=== PATIENT | male | born 1945 | race Caucasian/White ===

== ENCOUNTER 2016-12-27 10:30 | Outpatient (CLI) | payer OTHER ==
[~2016-12-27] VITALS: Ht 174 cm; Wt 76.2 kg
[2016-12-27] MEDS ORDERED: MELO15TA39 PO (11:06)
[2016-12-27] MEDS ORDERED: METH750T3 PO (11:06)
[2016-12-27] MEDS ORDERED: POLY17PO6 PO (11:06)
[2016-12-27] MEDS ORDERED: CAPS42.58 TP (11:06)
[2016-12-27] MEDS ORDERED: GABA-490 PO (11:06)
[2016-12-27] MEDS ORDERED: ASPI-586 PO (11:06)
[2016-12-27] MEDS ORDERED: TRAM50TA2 PO (11:06)
[2016-12-28] MEDS ORDERED: OXYB5TAB9 PO (08:20)
[2016-12-28] MEDS ORDERED: TRAZ-28 PO (08:20)
== END 2016-12-27 11:16 ==
LOC: PREOP 10:30
PROVIDERS: ATTEND Surgery
DX: Z01.818 Encounter for other preprocedural examination (principal); Z12.11 Encounter for screening for malignant neoplasm of colon; K59.00 Constipation, unspecified

== ENCOUNTER 2016-12-28 07:44 | Day surgery (SDC) | payer OTHER ==
[~2016-12-28] VITALS: Ht 174 cm; Wt 76.2 kg
[~2016-12-28 07:44] MED LIST: ASPI-586 PO; CAPS42.58 TP; GABA-490 PO; MELO15TA39 PO; METH750T3 PO; POLY17PO6 PO; TRAM50TA2 PO
[2016-12-28] MEDS ORDERED: NS IV 1000 ML 1,000 ML IV STA (07:51)
[2016-12-28] MEDS ORDERED: NALOXONE 0.4 MG/ML 1 ML (NARCAN) VIAL IVP PRN (08:00)
[2016-12-28] MEDS ORDERED: FLUMAZENIL (ROMAZICON) 0.1 MG/ML 5 ML VIAL INJ PRN (08:00)
[2016-12-28 08:12] VITALS: BP 121/72
[2016-12-28] MEDS ORDERED: fentaNYL INJECTION 100 MCG/2 ML AMP ONE (08:19)
[2016-12-28] MEDS ORDERED: proPOfol 200 MG/20 ML (DIPRIVAN) VIAL IV ONE (08:19)
[2016-12-28] MEDS ORDERED: TRAZ-28 PO (08:20)
[2016-12-28] MEDS ORDERED: OXYB5TAB9 PO (08:20)
--- NOTE | 2016-12-28 08:30 | Progress Note-Pre Operative ---
Pre-Operative Progress Note H&P Reviewed The H&P was reviewed, patient examined and no changes noted. Date H&P Reviewed: December 28, 2016 Time H&P Reviewed: 08:29 Pre-Operative Diagnosis: screening colonoscopy, constipation GALINA SANCHEZ DO December 28, 2016 8:30 am
--- NOTE | 2016-12-28 09:42 | Progress Note-Post Operative ---
Post-Operative Progess Note Surgeon (s)/Sander Operator (s) Surgeon GALINA SANCHEZ DO Sander Operator: na Pre-Operative Diagnosis screening colonoscopy, constipation Post-Operative Diagnosis normal colon Procedure & Operative Findings Date of Procedure 12/28/16 Procedure Performed/Findings colonoscopy Anesthesia Type per promotional demonstrator Estimated Blood Loss Estimated blood loss (mL): none Specimens/Packing Specimens Removed GALINA Pulido DO December 28, 2016 9:42 am
--- NOTE | 2016-12-28 09:45 | Discharge Inst-Simple/Standard ---
Discharge Inst-Standard Patient Instructions/Follow Up Plan of Care/Instructions/FU: Patient will need repeat colonscopy in 10 years Follow up with Dr. Haynes as needed. Activity as Tolerated: Yes Discharge Diet: No Restrictions PRADIP JAMES APRN December 28, 2016 09:45
[2016-12-28 10:00] VITALS: BP 131/75
--- NOTE | 2016-12-28 10:06 | OPERATIVE REPORT ---
DATE OF SERVICE: 12/28/2016 PREOPERATIVE DIAGNOSIS: Screening colonoscopy, constipation. POSTOPERATIVE DIAGNOSIS: Normal colon. PROCEDURE: Colonoscopy. ANESTHESIA: Per ANTIQUE DEALER. ESTIMATED BLOOD LOSS: None. COMPLICATIONS: None. INDICATIONS: The patient is a 71-year-old male with a need of screening colonoscopy. He has had some constipation at times. He understands risks and benefits of procedure and wished to proceed with procedure. Consent was signed in chart. PROCEDURE: The patient was taken to the endoscopy suite, placed in left lateral recumbent position. Timeout was performed. Digital rectal exam was performed and there were no palpable polyps, masses or ulcerations. Scope was inserted into the rectum and advanced all the way to the cecum. There was a lot of liquid stool throughout the entire colon, which 2 L of liquid brown stool was removed. The cecum was identified by the appendiceal orifice and the ileocecal valve. There were no polyps, masses or ulcerations within the cecum. The scope was then slowly retracted and continued to irrigate and suction for adequate visualization. Scope was then continuously retracted back throughout colon. There were no polyps, masses or ulcerations in the cecum, ascending, transverse, descending and sigmoid colon. Once in the rectum, scope was retroflexed noting no other pathology. Scope was returned to its normal position slowly withdrawn until completely removed, noting no other pathology. The patient tolerated procedure well without any complications and was taken to the recovery room in stable condition. RECOMMENDATIONS: The patient will need repeat colonoscopy in ten years. If he has any problems prior to that, he should be reevaluated at that time. If patient has any family history of colon cancer, he should be reevaluated in 5 years. Job ID: [id number] DocumentID: [id number] Dictated Date: 12/28/2016 09:45:26 Diesel Powerplant Mechanic Helper Date: 12/28/2016 10:05:30 Dictated By: GALINA SANCHEZ DO
[2016-12-28 10:30] VITALS: BP 126/84
[2016-12-28 10:50] VITALS: BP 126/84
== END 2016-12-28 10:50 | disposition home or self-care (01) ==
LOC: ENDO 07:44
PROVIDERS: ATTEND Surgery
DX: Z12.11 Encounter for screening for malignant neoplasm of colon (principal); K59.00 Constipation, unspecified

== ENCOUNTER 2018-07-26 08:56 | Outpatient (RCR) | payer OTHER ==
[~2018-07-26 08:56] MED LIST changes: +OXYB5TAB9 PO; +TRAZ-189 PO
== END 2018-08-04 13:41 | disposition home or self-care (01) ==
PROVIDERS: ATTEND Orthopaedic Surgery
DX: M19.012 Primary osteoarthritis, left shoulder (principal)

== ENCOUNTER 2020-06-27 13:30 | Emergency (ER) | payer OTHER ==
[~2020-06-27] VITALS: Ht 177 cm; Wt 160.0 kg
[~2020-06-27 13:30] MED LIST changes: +CAPS42.514 TP; -CAPS42.58 TP; +OXYB5TAB13 PO; -OXYB5TAB9 PO; -TRAM50TA2 PO; -TRAZ-189 PO; +TRM50T PO; +TRZ50T PO
[2020-06-27] MEDS ORDERED: LACTATED RINGERS 1,000 ML IV ONE (14:19)
[2020-06-27 14:30] LABS: BASOPHILS % (AUTO) 0 % (0-10); EOSINOPHILS % (AUTO) 1 % (0-10); HEMATOCRIT 36 % (40-54); HEMOGLOBIN 11.8 g/dL (13.3-17.7); LYMPHOCYTES # (AUTO) 1.2 10^3/uL (1.0-4.0); LYMPHOCYTES % (AUTO) 27 % (12-44); MEAN CORPUSCULAR HEMOGLOBIN 32 pg (25-34); MEAN CORPUSCULAR HGB CONC 32 g/dL (32-36); MEAN CORPUSCULAR VOLUME 99 fL (80-99); MEAN PLATELET VOLUME 9.8 fL (9.0-12.2); MONOCYTES # (AUTO) 0.8 10^3/uL (0.0-1.0); MONOCYTES % (AUTO) 18 % (0-12); NEUTROPHILS # (AUTO) 2.3 10^3/uL (1.8-7.8); NEUTROPHILS % (AUTO) 52 % (42-75); PLATELET COUNT 246 10^3/uL (130-400); WHITE BLOOD COUNT 4.5 10^3/uL (4.3-11.0)
[2020-06-27 14:47] LABS: ALBUMIN 3.1 GM/DL (3.2-4.5)
[2020-06-27 14:48] LABS: CHLORIDE 100 MMOL/L (98-107); POTASSIUM 4.4 MMOL/L (3.6-5.0); SODIUM 137 MMOL/L (135-145)
[2020-06-27 14:49] LABS: CALCIUM 8.4 MG/DL (8.5-10.1)
[2020-06-27 14:50] LABS: GLUCOSE 120 MG/DL (70-105); TOTAL PROTEIN 5.9 GM/DL (6.4-8.2)
[2020-06-27 14:51] LABS: CARBON DIOXIDE 26 MMOL/L (21-32)
[2020-06-27 14:52] LABS: BILIRUBIN,TOTAL 0.3 MG/DL (0.1-1.0)
[2020-06-27 14:53] LABS: ALKALINE PHOSPHATASE 56 U/L (40-136)
[2020-06-27 14:54] LABS: CREATININE SERUM 0.96 MG/DL (0.60-1.30); GFR ESTIMATED > 60
[2020-06-27 14:55] LABS: BUN/CREATININE RATIO 17
[2020-06-27 14:56] LABS: ALANINE AMINOTRANSFERASE 34 U/L (0-55); MAGNESIUM 2.1 MG/DL (1.6-2.4)
[2020-06-27 15:55] LABS: CLARITY,URINE CLEAR; COLOR,URINE YELLOW; GLUCOSE, URINE (UA) NEGATIVE (NEGATIVE); KETONES,URINE NEGATIVE (NEGATIVE); LEUKOCYTE ESTERASE ,URINE NEGATIVE (NEGATIVE); NITRITE,URINE NEGATIVE (NEGATIVE); PROTEIN,URINE NEGATIVE (NEGATIVE)
[2020-06-27] MEDS ORDERED: METR500T PO (16:07)
[2020-06-27] MEDS ORDERED: CIPR500T4 PO (16:07)
--- NOTE | 2020-06-27 16:07 | ED GI ---
General Chief Complaint: Abdominal/GI Problems Stated Complaint: DIARRHEA,STOMACH CRAMPING, WEAKNESS, Nursing Triage Note: PT REPORTS TO ED FOR DIARRHEA X'S 2 WEEKS. PER PT WAS TESTED AT [facility] 06/24/20 AND WAS NEGATIVE FOR COVID. Sepsis Screen: No Definite Risk Source of Information: Patient Exam Limitations: No Limitations History of Present Illness Date Seen by Provider: Jun 27, 2020 Time Seen by Provider: 14:19 Initial Comments Ethan is a 74-year-old gentleman who presents to the emergency room with abdominal discomfort, cramping, and bloody watery stool for about 2 weeks. He denies any fever, vomiting, or respiratory symptoms. He denies any recent antibiotic use. He had a COVID-19 test last Tuesday which was negative. He had a colonoscopy by Dr. Haynes in 2016 that was unremarkable. He typically struggles with constipation and requires stool softeners or laxatives. Allergies and Home Medications Allergies Coded Allergies: No Known Drug Allergies (Unverified , 12/27/16) Home Medications Aspirin 81 Mg Tablet.dr, 81 MG PO DAILY, (Reported) Ciprofloxacin HCl 500 Mg Tablet, 500 MG PO BID Prescribed by: SANDRA BAEZ on 06/27/20 1607 Gabapentin 400 Mg Capsule, 400 MG PO TID, (Reported) Meloxicam 15 Mg Tablet, 15 MG PO DAILY, (Reported) Methocarbamol 750 Mg Tablet, 750 MG PO TID, (Reported) Metronidazole 500 Mg Tablet, 500 MG PO TID Prescribed by: SANDRA BAEZ on 06/27/20 1607 Oxybutynin Chloride 5 Mg Tablet, 5 MG PO DAILY, (Reported) Polyethylene Glycol 3350 17 Gm Powd.pack, 17 GM PO DAILY, (Reported) Tramadol HCl 50 Mg Tablet, 50 MG PO Q4H PRN for PAIN-MILD, (Reported) Trazodone HCl 50 Mg Tablet, 50 MG PO HS, (Reported) Patient Home Medication List Home Medication List Reviewed: Yes Review of Systems Review of Systems Constitutional: no symptoms reported EENTM: No Symptoms Reported Respiratory: No Symptoms Reported Cardiovascular: No Symptoms Reported Gastrointestinal: See HPI Genitourinary: No Symptoms Reported Musculoskeletal: no symptoms reported Skin: no symptoms reported Psychiatric/Neurological: No Symptoms Reported Endocrine: No Symptoms Reported Hematologic/Lymphatic: No Symptoms Reported Past Fkfjkdp-Bjtwod-Wttssj Hx Past Med/Social Hx: Reviewed Nursing Past Med/Soc Hx Patient Social History Alcohol Use: Occasionally Uses Alcohol Beverage of Choice: Wine Recreational Drug Use: No Smoking Status: Former Smoker Former Smoker, Quit: December 27, 1976 Recent Foreign Travel: No Contact w/Someone Who Travel: No Recent Infectious Disease Expo: No Recent Hopitalizations: No Immunizations Up To Date Date of Pneumonia Vaccine: Oct 11, 2016 Date of Influenza Vaccine: May 17, 2016 Seasonal Allergies Seasonal Allergies: No Past Medical History Surgeries: Yes Abdominal (Colonoscopy 2016), Orthopedic (Spine, toe), Tonsillectomy Cardiac: No Neurological: Yes Neuropathy Reproductive Disorders: No Sexually Transmitted Disease: No HIV/AIDS: No Gastrointestinal: Yes Chronic Constipation Arthritis Loss of Vision: Bilateral Hearing Impairment: Denies Cancer: No Psychosocial: Yes Anxiety, Depression Adverse Reaction/Blood Tranf: No (N/A) Physical Exam Vital Signs Vital Signs - First Documented 06/27/20 13:52 Temp 36.5 Pulse 73 Resp 18 B/P (MAP) 110/64 (79) Pulse Ox 97 O2 Delivery Room Air Capillary Refill : Less Than 3 Seconds Height/Weight/BMI Height: 5'8.50" Weight: 168lbs. 0.0oz. 76.893083iv; 51.00 BMI Method: General Appearance: WD/WN, no apparent distress HEENT: PERRL/EOMI, normal ENT inspection Neck: normal inspection Respiratory: lungs clear, normal breath sounds, no respiratory distress, no accessory muscle use Cardiovascular: regular rate, rhythm, no edema, no murmur Gastrointestinal: normal bowel sounds, soft; No distended; tenderness (Left lower abdomen) Extremities: normal inspection, no pedal edema Neurologic/Psychiatric: power operator II-XII nml as tested, no motor/sensory deficits, alert, normal mood/affect, oriented x 3 Skin: normal color, warm/dry Progress/Results/Core Measures Results/Orders Lab Results Laboratory Tests Test 06/27/20 14:17 06/27/20 15:44 Range/Units White Blood Count 4.5 4.3-11.0 10^3/uL Red Blood Count 3.69 L 4.30-5.52 10^6/uL Hemoglobin 11.8 L 13.3-17.7 g/dL Hematocrit 36 L 40-54 % Mean Corpuscular Volume 99 80-99 fL Mean Corpuscular Hemoglobin 32 25-34 pg Mean Corpuscular Hemoglobin Concent 32 32-36 g/dL Red Cell Distribution Width 14.2 10.0-14.5 % Platelet Count 246 130-400 10^3/uL Mean Platelet Volume 9.8 9.0-12.2 fL Immature Granulocyte % (Auto) 2 % Neutrophils (%) (Auto) 52 42-75 % Lymphocytes (%) (Auto) 27 12-44 % Monocytes (%) (Auto) 18 H 0-12 % Eosinophils (%) (Auto) 1 0-10 % Basophils (%) (Auto) 0 0-10 % Neutrophils # (Auto) 2.3 1.8-7.8 10^3/uL Lymphocytes # (Auto) 1.2 1.0-4.0 10^3/uL Monocytes # (Auto) 0.8 0.0-1.0 10^3/uL Eosinophils # (Auto) 0.0 0.0-0.3 10^3/uL Basophils # (Auto) 0.0 0.0-0.1 10^3/uL Immature Granulocyte # (Auto) 0.1 0.0-0.1 10^3/uL Sodium Level 137 135-145 MMOL/L Potassium Level 4.4 3.6-5.0 MMOL/L Chloride Level 100 98-107 MMOL/L Carbon Dioxide Level 26 21-32 MMOL/L Anion Gap 11 5-14 MMOL/L Blood Urea Nitrogen 16 7-18 MG/DL Creatinine 0.96 0.60-1.30 MG/DL Estimat Glomerular Filtration Rate > 60 BUN/Creatinine Ratio 17 Glucose Level 120 H 70-105 MG/DL Calcium Level 8.4 L 8.5-10.1 MG/DL Corrected Calcium 9.1 8.5-10.1 MG/DL Magnesium Level 2.1 1.6-2.4 MG/DL Total Bilirubin 0.3 0.1-1.0 MG/DL Aspartate Amino Transf (AST/SGOT) 39 H 5-34 U/L Alanine Aminotransferase (ALT/SGPT) 34 0-55 U/L Alkaline Phosphatase 56 40-136 U/L C-Reactive Protein High Sensitivity 4.83 H 0.00-0.50 MG/DL Total Protein 5.9 L 6.4-8.2 GM/DL Albumin 3.1 L 3.2-4.5 GM/DL Micro Results Microbiology 06/27/20 Fecal Leukocyte Stain - Final, Resulted 06/27/20 C. difficile GDH Antigen & Toxins - Final, Resulted 06/27/20 Stool Culture, Resulted Pending My Orders Orders - SANDRA JONES MD Cbc With Automated Diff (06/27/20 14:19) Comprehensive Metabolic Panel (06/27/20 14:19) Hs C Reactive Protein (06/27/20 14:19) Magnesium (06/27/20 14:19) Ua Culture If Indicated (06/27/20 14:19) Stool Culture (06/27/20 14:19) Fecal Wbc (06/27/20 14:19) Ed Iv/Invasive Line Start (06/27/20 14:19) Lactated Ringers (Lr 1000 Ml Iv Solution (06/27/20 14:19) C Difficile Ag + Toxin A/B. (06/27/20 14:19) Isolation Central Supply Req (06/27/20 14:19) Fecal Occult Bedside (06/27/20 14:19) Medications Given in ED Current Medications Medications Dose Ordered Sig/Emily Route Start Time Stop Time Status Last Admin Dose Admin Lactated Ringer's 1,000 ml @ 0 mls/hr Q0M ONCE IV 06/27/20 14:19 06/27/20 14:22 DC 06/27/20 14:27 0 MLS/HR Vital Signs/I&O 06/27/20 13:52 Temp 36.5 Pulse 73 Resp 18 B/P (MAP) 110/64 (79) Pulse Ox 97 O2 Delivery Room Air Blood Pressure Mean: 79 Fecal Occult: Positive Progress Progress Note : Progress Note Patient was treated with a liter of IV fluids. Stool sample was collected and was Hemoccult positive. There was not enough specimen to run cultures. Patient was given an outpatient order form for the remainder of the studies. Cipro and Flagyl were prescribed for suspected diverticulitis. Labs were fairly unremarkable other than slight elevation in CRP. Patient was advised to follow- up with Dr. Haynes to discuss a possible repeat colonoscopy. I asked him to give me a call 2 to 3 days after he drops off of the stool specimen so that we can review results. Departure Impression Primary Impression: Left sided abdominal pain Additional Impression: Bloody diarrhea Disposition: 01 HOME, SELF-CARE Condition: Improved Departure-Patient Inst. Decision time for Depature: 16:04 Referrals: NO,LOCAL PHYSICIAN (PCP/Family) Primary Care Physician Patient Instructions: Bloody Stools Add. Discharge Instructions: Start with a clear liquid diet and gradually advance your diet with small quantities of bland food as tolerated. Drink plenty of clear liquids. Follow-up with Dr. Haynes to consider repeat colonoscopy for further evaluation. Complete the antibiotics as prescribed. Bring a stool culture into the hospital as soon as you are able. Bring the prescription order form with you. Return to the emergency room if you have worsening symptoms or if you develop new symptoms such as fever. All discharge instructions reviewed with patient and/or family. Voiced understanding. Scripts Metronidazole (Flagyl) 500 Mg Tablet 500 MG PO TID, #21 TAB Prov: SANDRA JONES MD 06/27/20 Ciprofloxacin HCl (Ciprofloxacin HCl) 500 Mg Tablet 500 MG PO BID, #14 TAB Prov: SANDRA JONES MD 06/27/20 Copy Copies To 1: GALINA HAYNES JOSHUA T MD Jun 27, 2020 16:07
[2020-06-27 16:20] LABS: BACTERIA,URINE NEGATIVE /HPF; BILIRUBIN,URINE 2+ (NEGATIVE); SQUAMOUS EPITHELIAL CELL,UR RARE /HPF
[2020-06-27 16:25] VITALS: BP 108/64
== END 2020-06-27 16:25 | disposition home or self-care (01) ==
LOC: EDUNIT# 13:30 → ER 13:32
DX: R10.32 Left lower quadrant pain (principal); K92.1 Melena; F41.9 Anxiety disorder, unspecified; F32.9 Major depressive disorder, single episode, unspecified; Z20.828 Contact with and (suspected) exposure to other viral communicable diseases; Z87.891 Personal history of nicotine dependence; Z79.82 Long term (current) use of aspirin
CPT/HCPCS: 36415; 80053; 81000; 82274; 83735; 85025; 86141; 87015; 87046; 87324; 87449; 87899; 89055; 96360

== ENCOUNTER → 2020-06-28 | Outpatient (CLI) | payer OTHER ==
[~2020-06-28] MED LIST changes: +CIPR500T4 PO; +METR500T PO
== END ==
LOC: LAB 16:03
PROVIDERS: ATTEND Family Medicine
DX: K92.1 Melena (principal); R19.7 Diarrhea, unspecified
CPT/HCPCS: 87015; 87045; 87046; 87899; 89055

== ENCOUNTER 2020-08-29 05:31 | Outpatient (RCR) | payer OTHER ==
[~2020-08-29] VITALS: Ht 173 cm; Wt 75.0 kg
[~2020-08-29 05:31] MED LIST changes: +ASPI-999 PO; +ETOD400T PO; +LORA10TA7 PO; +PREG100C55 PO; +ROPI0.253 PO; +TRAZ150T72 PO
== END 2020-08-29 10:07 | disposition home or self-care (01) ==
LOC: PREOP 05:31
PROVIDERS: ATTEND Surgery
DX: Z01.818 Encounter for other preprocedural examination (principal); K92.1 Melena; Z20.822 Contact with and (suspected) exposure to COVID-19
CPT/HCPCS: 87635

== ENCOUNTER 2020-09-02 10:58 | Day surgery (SDC) | payer OTHER ==
[~2020-09-02] VITALS: Ht 173 cm; Wt 75.0 kg
[2020-09-02] MEDS ORDERED: LACTATED RINGERS 1,000 ML IV ONE (11:00)
[2020-09-02 11:05] VITALS: BP 141/76
--- NOTE | 2020-09-02 11:32 | Progress Note-Pre Operative ---
Pre-Operative Progress Note H&P Reviewed The H&P was reviewed, patient examined and no changes noted. Date Seen by Provider: Sep 02, 2020 Time Seen by Provider: 11:31 Date H&P Reviewed: Sep 02, 2020 Time H&P Reviewed: 11:31 Pre-Operative Diagnosis: blood in stool, altered bowel function GALINA SANCHEZ DO Sep 02, 2020 11:32
[2020-09-02] MEDS ORDERED: LACTATED RINGERS 1,000 ML IV STA (11:40)
[2020-09-02] MEDS ORDERED: MIDAZOLAM 2 MG/2 ML (VERSED) VIAL ONE (11:54)
[2020-09-02] MEDS ORDERED: PROPOFOL INJECTION 50 ML IV ONE (11:54)
[2020-09-02 12:45] VITALS: BP 117/64
--- NOTE | 2020-09-02 12:45 | Progress Note-Post Operative ---
Post-Operative Progess Note Surgeon (s)/Garbage Pick Up Worker (s) Surgeon GALINA SANCHEZ DO Garbage Pick Up Worker: N/A Pre-Operative Diagnosis blood in stool, altered bowel function Post-Operative Diagnosis Poor prep Procedure & Operative Findings Date of Procedure 09/02/20 Procedure Performed/Findings Flex sig, incomplete colonoscopy Anesthesia Type per ELECTRONIC SYSTEMS SECURITY ASSESSMENT Estimated Blood Loss Estimated blood loss (mL): none Specimens/Packing Specimens Removed None GALINA SANCHEZ DO Sep 02, 2020 12:45
[2020-09-02 12:50] VITALS: BP_SYST 142; BP_SYST 144; BP_DIAS 71; BP_DIAS 77
--- NOTE | 2020-09-02 12:50 | Discharge Inst-Simple/Standard ---
Discharge Inst-Standard Patient Instructions/Follow Up Plan of Care/Instructions/FU: Do the prep again today with same instruction. Nothing to drink after midnight and plan to repeat scope tomorrow. Activity as Tolerated: Yes Discharge Diet: Liquid Diet GALNIA SANCHEZ DO Sep 02, 2020 12:50
[2020-09-02 13:20] VITALS: BP 150/82
[2020-09-02 13:33] VITALS: BP 150/82
--- NOTE | 2020-09-02 20:10 | OPERATIVE REPORT ---
DATE OF SERVICE: 09/02/2020 PREOPERATIVE DIAGNOSIS: Blood in stool, altered bowel dysfunction. POSTOPERATIVE DIAGNOSIS: Poor prep. PROCEDURE: Flexible sigmoidoscopy, incomplete colonoscopy. SURGEON: Galina Haynes DO ANESTHESIA: Per INFORMATION RECEPTIONIST. ESTIMATED BLOOD LOSS: None. COMPLICATIONS: None. INDICATIONS: The patient is a 75-year-old male with blood in stools and altered bowel function. He understands risks and benefits of procedure and wished to proceed with procedure. Consent was signed in the chart. DESCRIPTION OF PROCEDURE: The patient was taken to the endoscopy suite, placed in the left lateral recumbent position. Timeout was performed. Digital rectal exam was performed. No palpable polyps, masses or ulcerations. Scope was inserted into the rectum, fairly significant stool load was present, lots of irrigation and suctioned continued. Scope was able to be passed through the rectum into the sigmoid colon and slowly advanced, still significant stool load, lots of irrigation and suction used, but still not adequate visualization, therefore scope was then slowly retracted back until completely removed, noting no gross pathology. The scope was then slowly retracted until completely removed. The patient will re-prep today and plan on repeat colonoscopy tomorrow for better visualization. Job ID: [id number] DocumentID: [id number] Dictated Date: 09/02/2020 12:52:39 Geological E Logger Date: 09/02/2020 20:09:40 Dictated By: GALINA HAYNES DO
== END 2020-09-02 13:34 | disposition home or self-care (01) ==
LOC: ENDO 10:58
PROVIDERS: ATTEND Surgery
DX: K92.1 Melena (principal); F41.9 Anxiety disorder, unspecified; F32.9 Major depressive disorder, single episode, unspecified; G62.9 Polyneuropathy, unspecified; G89.29 Other chronic pain; Z79.899 Other long term (current) drug therapy; Z79.82 Long term (current) use of aspirin; Z79.02 Long term (current) use of antithrombotics/antiplatelets; Z87.891 Personal history of nicotine dependence

== ENCOUNTER 2020-09-03 07:11 | Day surgery (SDC) | payer OTHER ==
[~2020-09-03] VITALS: Ht 173 cm; Wt 75.0 kg
[2020-09-03] MEDS ORDERED: LACTATED RINGERS 1,000 ML IV ONE (07:20)
[2020-09-03] MEDS ORDERED: LACTATED RINGERS 1,000 ML IV STA (07:23)
[2020-09-03] MEDS ORDERED: PROPOFOL INJECTION 50 ML IV ONE (07:32)
[2020-09-03] MEDS ORDERED: MIDAZOLAM 2 MG/2 ML (VERSED) VIAL ONE (07:33)
[2020-09-03 07:34] VITALS: BP 126/82
--- NOTE | 2020-09-03 07:42 | Progress Note-Pre Operative ---
Pre-Operative Progress Note H&P Reviewed The H&P was reviewed, patient examined and no changes noted. Date Seen by Provider: Sep 03, 2020 Time Seen by Provider: 07:42 Date H&P Reviewed: Sep 03, 2020 Time H&P Reviewed: 07:42 Pre-Operative Diagnosis: blood in stool GALINA SANCHEZ DO Sep 03, 2020 07:42
[2020-09-03 08:30] VITALS: BP 78/49
[2020-09-03 08:35] VITALS: BP 131/64
[2020-09-03 08:40] VITALS: BP 132/67
[2020-09-03] MEDS ORDERED: DIATRIZOATE MEGLUM/SODIUM 37% 120 ML (GASTROGRAFIN) PO ONE (09:15)
[2020-09-03 09:40] VITALS: BP 136/83
--- NOTE | 2020-09-03 09:52 | Anesthesia-General Post-Op ---
MAC Significant Intra-Op Events Notes addendum 09-02-20 at 1400 Patient Condition Mental Status/LOC: Same as Preop Cardiovascular: Satisfactory Nausea/Vomiting: Absent Respiratory: Satisfactory Pain: Controlled Complications: Absent Post Op Complications Complications None Follow Up Care/Instructions Patient Instructions None needed. Anesthesiology Discharge Order Discharge Order Patient is doing well, no complaints, stable vital signs, no apparent adverse anesthesia problems. No complications reported per nursing. DIMAS CHOWDHURY CRNA Sep 03, 2020 09:52
--- NOTE | 2020-09-03 09:57 | Diagnostic Imaging Report ---
PROCEDURE: CT abdomen and pelvis without contrast. TECHNIQUE: Multiple contiguous axial images were obtained through the abdomen and pelvis without the use of intravenous contrast. Auto Exposure Controls were utilized during the CT exam to meet ALARA standards for radiation dose reduction. INDICATION: Incomplete colonoscopy. FINDINGS: There is a large amount of gas throughout the colon from recent colonoscopy. There is incomplete filling of the colon with contrast that was administered rectally. Lung bases are clear. Liver and gallbladder are unremarkable. Pancreas and spleen are unremarkable. No adrenal mass is detected. Kidneys are without calculi or hydronephrosis. Aorta is non-aneurysmal. There is no free fluid in the abdomen or pelvis. Bladder is unremarkable. Images of the rectum and sigmoid are unremarkable. No wall thickening or mass is seen. The right and left colon were not well opacified. IMPRESSION: Limited CT abdomen and pelvis study due to large amount of gas throughout the colon and small bowel from recent colonoscopy. Only the rectum and sigmoid could be adequately opacified with rectal contrast. Dedicated CT colonoscopy study after adequate prep could be attempted at a later date. No acute features identified. Dictated by: Dictated on workstation # [id number]
[2020-09-03 09:59] VITALS: BP 136/83
--- NOTE | 2020-09-03 23:50 | OPERATIVE REPORT ---
DATE OF SERVICE: 09/03/2020 PREOPERATIVE DIAGNOSIS: Blood in stool. POSTOPERATIVE DIAGNOSIS: Incomplete colonoscopy. PROCEDURE: Incomplete colonoscopy to the transverse colon. SURGEON: Galina Haynes DO ANESTHESIA: Per SENIOR JAVA UI DEVELOPER. ESTIMATED BLOOD LOSS: None. COMPLICATIONS: None. INDICATIONS: The patient is a 75-year-old male who has had blood in his stools. He had a poor bowel prep yesterday. He was reprepped, the patient came in for colonoscopy. He understands risks and benefits of procedure and wished to proceed with procedure. Consent was signed in the chart. DESCRIPTION OF PROCEDURE: The patient was taken to the endoscopy suite, placed in the left lateral recumbent position. Timeout was performed. Digital rectal exam was performed. There were no palpable polyps, masses or ulcerations. Scope was inserted in the rectum, advanced all the way into the rectum into the sigmoid colon and into the descending colon. The patient's colon was extremely redundant and the patient was repositioned multiple times. The scope was then continued to be advanced all the way to the transverse colon where the patient again had to be repositioned multiple times. At this point, the entire scope had been utilized and could not get down through into the ascending colon and cecum. The patient again was repositioned multiple times and the scope was repositioned multiple times in order to try to get it to advance. Scope was unable to be advanced further past the transverse colon. Therefore, the scope was then slowly retracted. There were no polyps, masses or ulcerations visualized within the transverse, descending and sigmoid colon. Once in the rectum, scope was retroflexed noting no other pathology. RECOMMENDATIONS: Since the patient was prepped and needs further evaluation of the cecum and ascending colon, we will plan on having a CT scan with rectal contrast to evaluate the remainder of the colon. Further recommendations pending that result. Job ID: [id number] DocumentID: [id number] Dictated Date: 09/03/2020 20:23:42 Booth Cashier Date: 09/03/2020 23:50:28 Dictated By: GALINA HAYNES DO
== END 2020-09-03 09:58 | disposition home or self-care (01) ==
LOC: ENDO 07:11
PROVIDERS: ATTEND Surgery
DX: K92.1 Melena (principal); F41.9 Anxiety disorder, unspecified; F32.9 Major depressive disorder, single episode, unspecified; G62.9 Polyneuropathy, unspecified; Z79.82 Long term (current) use of aspirin; Z79.899 Other long term (current) drug therapy; Z79.02 Long term (current) use of antithrombotics/antiplatelets; Z87.891 Personal history of nicotine dependence
CPT/HCPCS: 74176

== ENCOUNTER 2020-09-09 14:08 | Emergency (ER) | payer OTHER ==
[~2020-09-09] VITALS: Ht 172.7 cm; Wt 74.8 kg
--- NOTE | 2020-09-09 14:26 | ED GI ---
General Stated Complaint: POSSIBLE BOWEL OBSTRUCTION Source of Information: Patient Exam Limitations: No Limitations History of Present Illness Date Seen by Provider: Sep 09, 2020 Time Seen by Provider: 14:24 Initial Comments To ER with concern of a bowel obstruction. He had a colonoscopy on 09/03/2020 which was unable to be completed due to poor prep. He then underwent a CT with rectal contrast. He is concerned because he had some intermittent nausea and no bowel movement since the procedure. He is on opiates for spinal cord injury. Timing/Duration: 1-2 Days Severity/Quality: Moderate Location: Generalized Abdomen Radiation: No Radiation Activities at Onset: None Associated Symptoms: Denies Symptoms Allergies and Home Medications Allergies Coded Allergies: No Known Drug Allergies (Unverified , 12/27/16) Home Medications Aspirin 81 Mg Tab.chew, 81 MG PO Q48H, (Reported) Etodolac 400 Mg Tablet, 400 MG PO BID, (Reported) Loratadine 10 Mg Tablet, 10 MG PO HS, (Reported) Meloxicam 15 Mg Tablet, 15 MG PO DAILY PRN for MUSCLE SPASMS, (Reported) Methocarbamol 750 Mg Tablet, 750 MG PO TID, (Reported) Oxybutynin Chloride 5 Mg Tablet, 5 MG PO DAILY, (Reported) Polyethylene Glycol 3350 17 Gm Powd.pack, 17 GM PO DAILY, (Reported) Pregabalin 100 Mg Capsule, 100 MG PO TID, (Reported) Ropinirole HCl 0.25 Mg Tablet, 0.25 MG PO HS, (Reported) Trazodone HCl 150 Mg Tablet, 150 MG PO HS, (Reported) Patient Home Medication List Home Medication List Reviewed: Yes Review of Systems Review of Systems Constitutional: see HPI EENTM: No Symptoms Reported Respiratory: No Symptoms Reported Cardiovascular: No Symptoms Reported Gastrointestinal: See HPI, Nausea Genitourinary: No Symptoms Reported Musculoskeletal: no symptoms reported Skin: no symptoms reported Psychiatric/Neurological: No Symptoms Reported Endocrine: No Symptoms Reported Hematologic/Lymphatic: No Symptoms Reported Past Qxvoyyk-Bcxzws-Oofmnw Hx Patient Social History Alcohol Beverage of Choice: Wine Former Smoker, Quit: December 27, 1976 2nd Hand Smoke Exposure: No Recent Hopitalizations: No Immunizations Up To Date Date of Pneumonia Vaccine: Oct 11, 2016 Date of Influenza Vaccine: May 17, 2020 Seasonal Allergies Seasonal Allergies: No Past Medical History Surgeries: Yes (spinal fusion, toe sx, ) Abdominal, Orthopedic, Tonsillectomy Respiratory: No Cardiac: No Neurological: Yes (tremors) Neuropathy Reproductive Disorders: No Sexually Transmitted Disease: No HIV/AIDS: No Genitourinary: No Gastrointestinal: Yes (blood in stools) Chronic Constipation, Chronic Diarrhea Musculoskeletal: Yes Arthritis Endocrine: No HEENT: No Loss of Vision: Bilateral Hearing Impairment: Denies Cancer: No Psychosocial: Yes Anxiety, Depression Integumentary: No Blood Disorders: No Adverse Reaction/Blood Tranf: No (N/A) Physical Exam Vital Signs Vital Signs - First Documented 09/09/20 14:14 Temp 37.0 Pulse 71 Resp 18 B/P (MAP) 125/66 (85) Pulse Ox 100 O2 Delivery Room Air Capillary Refill : Height/Weight/BMI Height: 5'8.50" Weight: 168lbs. 0.0oz. 76.935980hg; 25.05 BMI Method: General Appearance: WD/WN, no apparent distress HEENT: PERRL/EOMI Neck: non-tender, full range of motion Respiratory: no respiratory distress, no accessory muscle use Gastrointestinal: normal bowel sounds, non tender, soft Extremities: normal range of motion, non-tender Neurologic/Psychiatric: alert, normal mood/affect, oriented x 3 Skin: normal color, warm/dry Progress/Results/Core Measures Results/Orders Lab Results Laboratory Tests Test 09/09/20 14:25 Range/Units White Blood Count 4.8 4.3-11.0 10^3/uL Red Blood Count 4.46 4.30-5.52 10^6/uL Hemoglobin 14.1 13.3-17.7 g/dL Hematocrit 43 40-54 % Mean Corpuscular Volume 96 80-99 fL Mean Corpuscular Hemoglobin 32 25-34 pg Mean Corpuscular Hemoglobin Concent 33 32-36 g/dL Red Cell Distribution Width 12.6 10.0-14.5 % Platelet Count 226 130-400 10^3/uL Mean Platelet Volume 9.9 9.0-12.2 fL Immature Granulocyte % (Auto) 0 % Neutrophils (%) (Auto) 49 42-75 % Lymphocytes (%) (Auto) 40 12-44 % Monocytes (%) (Auto) 10 0-12 % Eosinophils (%) (Auto) 0 0-10 % Basophils (%) (Auto) 0 0-10 % Neutrophils # (Auto) 2.4 1.8-7.8 10^3/uL Lymphocytes # (Auto) 1.9 1.0-4.0 10^3/uL Monocytes # (Auto) 0.5 0.0-1.0 10^3/uL Eosinophils # (Auto) 0.0 0.0-0.3 10^3/uL Basophils # (Auto) 0.0 0.0-0.1 10^3/uL Immature Granulocyte # (Auto) 0.0 0.0-0.1 10^3/uL Sodium Level 135 135-145 MMOL/L Potassium Level 4.4 3.6-5.0 MMOL/L Chloride Level 99 98-107 MMOL/L Carbon Dioxide Level 26 21-32 MMOL/L Anion Gap 10 5-14 MMOL/L Blood Urea Nitrogen 21 H 7-18 MG/DL Creatinine 1.00 0.60-1.30 MG/DL Estimat Glomerular Filtration Rate > 60 BUN/Creatinine Ratio 21 Glucose Level 105 70-105 MG/DL Calcium Level 9.3 8.5-10.1 MG/DL Corrected Calcium 9.4 8.5-10.1 MG/DL Total Bilirubin 0.3 0.1-1.0 MG/DL Aspartate Amino Transf (AST/SGOT) 22 5-34 U/L Alanine Aminotransferase (ALT/SGPT) 20 0-55 U/L Alkaline Phosphatase 64 40-136 U/L Total Protein 7.3 6.4-8.2 GM/DL Albumin 3.9 3.2-4.5 GM/DL My Orders Orders - EVELYN REED APRN Cbc With Automated Diff (09/09/20 14:19) Comprehensive Metabolic Panel (09/09/20 14:19) Ed Iv/Invasive Line Start (09/09/20 14:19) Methylnaltrexone Injection (Relistor Inj (09/09/20 14:30) Abdomen, Flat & Upright/Decub (09/09/20 14:51) Medications Given in ED Current Medications Medications Dose Ordered Sig/Emily Route Start Time Stop Time Status Last Admin Dose Admin Methylnaltrexone [place] 12 mg ONCE ONCE SQ 09/09/20 14:30 09/09/20 14:31 DC 09/09/20 14:40 12 MG Vital Signs/I&O 09/09/20 14:14 Temp 37.0 Pulse 71 Resp 18 B/P (MAP) 125/66 (85) Pulse Ox 100 O2 Delivery Room Air Departure Impression Primary Impression: Constipation Disposition: 01 HOME, SELF-CARE Condition: Stable Departure-Patient Inst. Decision time for Depature: 15:50 Referrals: NO,LOCAL PHYSICIAN (PCP/Family) Primary Care Physician Patient Instructions: Constipation in Adults Add. Discharge Instructions: 1. Medication as directed 2. Return to ER for any concerns. 1. Medication as directed 2. Follow-up with your doctor next week. EVELYN REED APRN Sep 09, 2020 14:26
[2020-09-09] MEDS ORDERED: METHYLNALTREXONE 12 MG/0.6 ML (RELISTOR) VIAL SQ ONE (14:30)
[2020-09-09 14:33] LABS: BASOPHILS % (AUTO) 0 % (0-10); EOSINOPHILS % (AUTO) 0 % (0-10); HEMATOCRIT 43 % (40-54); HEMOGLOBIN 14.1 g/dL (13.3-17.7); LYMPHOCYTES # (AUTO) 1.9 10^3/uL (1.0-4.0); LYMPHOCYTES % (AUTO) 40 % (12-44); MEAN CORPUSCULAR HEMOGLOBIN 32 pg (25-34); MEAN CORPUSCULAR HGB CONC 33 g/dL (32-36); MEAN CORPUSCULAR VOLUME 96 fL (80-99); MEAN PLATELET VOLUME 9.9 fL (9.0-12.2); MONOCYTES # (AUTO) 0.5 10^3/uL (0.0-1.0); MONOCYTES % (AUTO) 10 % (0-12); NEUTROPHILS # (AUTO) 2.4 10^3/uL (1.8-7.8); NEUTROPHILS % (AUTO) 49 % (42-75); PLATELET COUNT 226 10^3/uL (130-400); WHITE BLOOD COUNT 4.8 10^3/uL (4.3-11.0)
[2020-09-09 14:44] LABS: ALBUMIN 3.9 GM/DL (3.2-4.5); CHLORIDE 99 MMOL/L (98-107); POTASSIUM 4.4 MMOL/L (3.6-5.0); SODIUM 135 MMOL/L (135-145)
[2020-09-09 14:45] LABS: CALCIUM 9.3 MG/DL (8.5-10.1)
[2020-09-09 14:46] LABS: GLUCOSE 105 MG/DL (70-105); TOTAL PROTEIN 7.3 GM/DL (6.4-8.2)
[2020-09-09 14:47] LABS: CARBON DIOXIDE 26 MMOL/L (21-32)
[2020-09-09 14:48] LABS: BILIRUBIN,TOTAL 0.3 MG/DL (0.1-1.0)
[2020-09-09 14:50] LABS: ALKALINE PHOSPHATASE 64 U/L (40-136); GFR ESTIMATED > 60
[2020-09-09 14:51] LABS: BUN/CREATININE RATIO 21
[2020-09-09 14:53] LABS: ALANINE AMINOTRANSFERASE 20 U/L (0-55)
--- NOTE | 2020-09-09 15:51 | Diagnostic Imaging Report ---
INDICATION: Abdominal distention. COMPARISON: CT dated 09/03/2020. TECHNIQUE: Two radiographs of the abdomen dated 09/09/2020. FINDINGS: The visualized lung bases are clear of focal pulmonary opacity. Extensive amount of stool is noted throughout the colon. No definite dilated loops of small bowel. No differential air-fluid levels. No free air. Phleboliths within the lower pelvis. No acute osseous abnormality. IMPRESSION: Extensive amount of stool throughout the colon which is felt related to constipation. No definite evidence of bowel obstruction or free air. Dictated by: Dictated on workstation # [id number]
[2020-09-09] MEDS ORDERED: MAGNESIUM CITRATE 300 ML BTL PO ONE (16:00)
[2020-09-09 16:15] VITALS: BP 110/80
== END 2020-09-09 16:15 | disposition home or self-care (01) ==
LOC: EDUNIT# 14:08 → ER 14:10
DX: K59.00 Constipation, unspecified (principal); F41.9 Anxiety disorder, unspecified; F32.9 Major depressive disorder, single episode, unspecified; Z87.891 Personal history of nicotine dependence; Z79.82 Long term (current) use of aspirin
CPT/HCPCS: 36415; 74019; 80053; 85025

== ENCOUNTER → 2020-10-02 | Outpatient (CLI) | payer OTHER ==
[~2020-10-02] MED LIST changes: -CIPR500T4 PO; +CIPR500T5 PO; +METH-732 PO; -METH750T3 PO
--- NOTE | 2020-10-02 12:10 | Diagnostic Imaging Report ---
PROCEDURE: CT abdomen and pelvis without contrast. TECHNIQUE: Multiple contiguous axial images were obtained through the abdomen and pelvis without the use of intravenous contrast. Auto Exposure Controls were utilized during the CT exam to meet ALARA standards for radiation dose reduction. INDICATION: Occult blood in the stool. COMPARISON: 09/03/2020 FINDINGS: Included portions of the lung bases are clear. CT ABDOMEN: Indwelling rectal catheter is noted. Air and contrast is scattered throughout the colon. No large space-occupying obstructive mass is identified. Normal appendix is identified. Small bowel loops are nondistended. Kidneys, adrenal glands, spleen, pancreas, and liver have an unremarkable noncontrast CT appearance. There is no loculated fluid collection, free fluid, nor free air within the abdomen. No abnormal mesenteric or retroperitoneal adenopathy is seen. There is mild scattered calcified aortic and arterial atherosclerosis. Osseous structures show no acute abnormality. CT PELVIS: Urinary bladder is unopacified. No calculi are seen within the urinary bladder. There is no loculated fluid collection, free fluid or free air. No abnormal lymph nodes are seen. Osseous structures show no acute abnormalities. IMPRESSION: 1. No large obstructive colonic mass is identified. Please note however that malignancy cannot be entirely excluded based on this exam alone given limitations of technique. 2. No other acute abnormalities are seen within the abdomen or pelvis. Dictated by: Dictated on workstation # [id number]
--- NOTE | 2020-10-02 12:25 | Diagnostic Imaging Report ---
INDICATION: Incomplete colonoscopy. TIME OF EXAM: 9:56 AM Single view of the abdomen shows moderate gas throughout the small and large bowel loops. No wall thickening is seen. No significant stool load is identified. A degree of gas does preclude the performance of barium enema. No pathologic calcifications are seen. IMPRESSION: Moderate gas throughout the small and large bowel loops consistent with ileus. Dictated by: Dictated on workstation # [id number]
== END ==
LOC: RAD 09:45
PROVIDERS: ATTEND Surgery
DX: R19.5 Other fecal abnormalities (principal); R14.3 Flatulence
CPT/HCPCS: 74018; 74176

== ENCOUNTER 2021-02-12 13:15 | Outpatient (RCR) | payer OTHER ==
[~2021-02-12 13:15] MED LIST changes: -ETOD400T PO; +ETOD400T3 PO
== END 2021-02-15 | disposition home or self-care (01) ==
PROVIDERS: ATTEND Anesthesiology Pain Medicine
DX: M54.5 Low back pain (principal); M25.562 Pain in left knee; M79.2 Neuralgia and neuritis, unspecified

== ENCOUNTER 2021-05-12 15:18 | Outpatient (RCR) | payer OTHER | END 2021-05-12 16:00 | disposition home or self-care (01) | PROVIDERS: ATTEND Anesthesiology Pain Medicine | DX: M54.9 Dorsalgia, unspecified (principal); M25.562 Pain in left knee; M79.2 Neuralgia and neuritis, unspecified ==

== ENCOUNTER 2021-11-24 09:03 | Emergency (ER) | payer OTHER ==
[~2021-11-24] VITALS: Ht 175 cm; Wt 77.0 kg
[2021-11-24 09:20] LABS: CLARITY,URINE CLEAR; COLOR,URINE YELLOW; GLUCOSE, URINE (UA) NEGATIVE (NEGATIVE); KETONES,URINE NEGATIVE (NEGATIVE); LEUKOCYTE ESTERASE ,URINE NEGATIVE (NEGATIVE); NITRITE,URINE NEGATIVE (NEGATIVE); PROTEIN,URINE NEGATIVE (NEGATIVE)
[2021-11-24 09:31] LABS: BACTERIA,URINE NEGATIVE /HPF; BILIRUBIN,URINE 3+ (NEGATIVE); WBC,URINE RARE /HPF
[2021-11-24 09:36] LABS: BASOPHILS % (AUTO) 1 % (0-10); EOSINOPHILS # (AUTO) 0.1 10^3/uL (0.0-0.3); EOSINOPHILS % (AUTO) 2 % (0-10); HEMATOCRIT 43 % (40-54); HEMOGLOBIN 14.3 g/dL (13.3-17.7); LYMPHOCYTES # (AUTO) 1.1 10^3/uL (1.0-4.0); LYMPHOCYTES % (AUTO) 32 % (12-44); MEAN CORPUSCULAR HEMOGLOBIN 32 pg (25-34); MEAN CORPUSCULAR HGB CONC 33 g/dL (32-36); MEAN CORPUSCULAR VOLUME 95 fL (80-99); MEAN PLATELET VOLUME 10.2 fL (9.0-12.2); MONOCYTES # (AUTO) 0.4 10^3/uL (0.0-1.0); MONOCYTES % (AUTO) 12 % (0-12); NEUTROPHILS # (AUTO) 1.8 10^3/uL (1.8-7.8); NEUTROPHILS % (AUTO) 54 % (42-75); PLATELET COUNT 184 10^3/uL (130-400); WHITE BLOOD COUNT 3.3 10^3/uL (4.3-11.0)
--- NOTE | 2021-11-24 09:37 | ED Abdominal Pain ---
General Chief Complaint: Abdominal/GI Problems Stated Complaint: RLQ PAIN Nursing Triage Note: PT AMB TO RM 6 PT CO OF R UPPER SIDE PAIN, HAS HAD FOR A LONG TIME WORSENING PAST 2 WEEKS, DENIES FEVERS,N/V,DIARRHEA. STATES HAD NORMAL BM YESTERDAY Source of Information: Patient Exam Limitations: No Limitations History of Present Illness Date Seen by Provider: Nov 24, 2021 Time Seen by Provider: 09:14 Initial Comments The patient presents to the ER by private conveyance from home with chief complaint of the past month he had an intermittent waxing and waning right upper quadrant right flank down to the right lower quadrant abdominal pain described as sharp. Does not seem to be associated with meals. He has not had cholecystectomy or appendectomy. He is not having any rash burning or itching. He does not have a history of shingles shot. He follows with the [facility] for primary care. Last solid food was yesterday evening although he has had some liquid things to drink for breakfast this morning. He does not drink alcohol nor does he have a history of pancreatitis. Denies a history of GERD or gastritis. No nausea or vomiting. No diarrhea, had a normal bowel movement yesterday. He did have a spinal cord injury in his middle cervical spine and is on Robaxin daily as well as topical Voltaren. He does not use ibuprofen but he does use Tylenol as needed. He has not had hydrocodone in over a month. Allergies and Home Medications Allergies Coded Allergies: No Known Drug Allergies (Unverified , 12/27/16) Patient Home Medication List Home Medication List Reviewed: Yes Aspirin (Aspirin) 81 Mg Tab.chew, 81 MG PO Q48H, (Reported) Entered as Reported by: SALMA MOBLEY on 08/26/20 1205 Etodolac (Etodolac) 400 Mg Tablet, 400 MG PO BID, (Reported) Entered as Reported by: SALMA MOBLEY on 08/26/20 1205 Loratadine (Loratadine) 10 Mg Tablet, 10 MG PO HS, (Reported) Entered as Reported by: SALMA MOBLEY on 08/26/20 1205 Meloxicam (Meloxicam) 15 Mg Tablet, 15 MG PO DAILY PRN for MUSCLE SPASMS, (Reported) Entered as Reported by: VICKY ROSE on 12/27/16 1106 Methocarbamol (Methocarbamol) 750 Mg Tablet, 750 MG PO TID, (Reported) Entered as Reported by: VICKY ROSE on 12/27/16 1106 Oxybutynin Chloride (Oxybutynin Chloride) 5 Mg Tablet, 5 MG PO DAILY, (Reported) Entered as Reported by: MARÍA GUEVARA on 12/28/16 0820 Polyethylene Glycol 3350 (Miralax) 17 Gm Powd.pack, 17 GM PO DAILY, (Reported) Entered as Reported by: VICKY ROSE on 12/27/16 1106 Pregabalin (Pregabalin) 100 Mg Capsule, 100 MG PO TID, (Reported) Entered as Reported by: SALMA MOBLEY on 08/26/20 1205 Ropinirole HCl (Ropinirole HCl) 0.25 Mg Tablet, 0.25 MG PO HS, (Reported) Entered as Reported by: SALMA MOBLEY on 08/26/20 1205 Trazodone HCl (Trazodone HCl) 150 Mg Tablet, 150 MG PO HS, (Reported) Entered as Reported by: SALMA MOBLEY on 08/26/20 1205 Review of Systems Review of Systems Constitutional: No chills, No diaphoresis EENTM: No Blurred Vision, No Double Vision Respiratory: Denies Cough, Denies Shortness of Air Cardiovascular: Denies Chest Pain, Denies Lightheadedness Gastrointestinal: See HPI, Abdominal Pain; Denies Constipated, Denies Diarrhea, Denies Nausea, Denies Poor Fluid Intake Genitourinary: Denies Burning, Denies Discharge Musculoskeletal: No back pain, No joint pain Skin: No pruritus, No rash Psychiatric/Neurological: Denies Anxiety, Denies Depressed All Other Systems Reviewed Negative Unless Noted: Yes Past Ienznts-Ajbwcf-Kuqpov Hx Patient Social History Tobacco Use?: No Use of E-Cig and/or Vaping dev: No Substance use?: No Seasonal Allergies Seasonal Allergies: No Past Medical History Surgeries: Yes (spinal fusion, toe sx, ) Abdominal, Orthopedic, Tonsillectomy Respiratory: No Cardiac: No Neurological: Yes (tremors) Neuropathy Reproductive Disorders: No Sexually Transmitted Disease: No HIV/AIDS: No Genitourinary: No Gastrointestinal: Yes (blood in stools) Chronic Constipation, Chronic Diarrhea Musculoskeletal: Yes Arthritis Endocrine: No HEENT: No Loss of Vision: Bilateral Hearing Impairment: Denies Cancer: No Psychosocial: Yes Anxiety, Depression Integumentary: No Blood Disorders: No Adverse Reaction/Blood Tranf: No (N/A) Physical Exam Vital Signs Vital Signs - First Documented 11/24/21 09:05 Temp 36.8 Pulse 63 Resp 18 B/P (MAP) 154/81 (105) Pulse Ox 98 Capillary Refill : Height/Weight/BMI Height: 5'8.50" Weight: 168lbs. 0.0oz. 76.644634hp; 25.00 BMI Method: General Appearance: WD/WN, mild distress HEENT: PERRL/EOMI, pharynx normal Neck: full range of motion, supple, normal inspection Respiratory: lungs clear, normal breath sounds, no respiratory distress, no accessory muscle use Cardiovascular: normal peripheral pulses, regular rate, rhythm Peripheral Pulses: 2+ Radial Pulses (R), 2+ Radial Pulses (L) Gastrointestinal: normal bowel sounds, soft, tenderness (Right upper quadrant but negative for Mueller sign.), other (Psoas sign bilaterally positive. No other mesenteric signs right flank is tender.) Extremities: normal range of motion, normal inspection, normal capillary refill Neurologic/Psychiatric: alert, normal mood/affect, oriented x 3 Skin: normal color, warm/dry Progress/Results/Core Measures Results/Orders Lab Results Laboratory Tests Test 11/24/21 09:12 11/24/21 09:30 Range/Units Urine Color YELLOW Urine Clarity CLEAR Urine pH 7.0 5-9 Urine Specific [place] 1.020 1.016-1.022 Urine Protein NEGATIVE NEGATIVE Urine Glucose (UA) NEGATIVE NEGATIVE Urine Ketones NEGATIVE NEGATIVE Urine Nitrite NEGATIVE NEGATIVE Urine Bilirubin 3+ H NEGATIVE Urine Urobilinogen 0.2 < = 1.0 MG/DL Urine Leukocyte Esterase NEGATIVE NEGATIVE Urine RBC (Auto) NEGATIVE NEGATIVE Urine RBC NONE /HPF Urine WBC RARE /HPF Urine Crystals NONE /LPF Urine Bacteria NEGATIVE /HPF Urine Casts NONE /LPF Urine Mucus NEGATIVE /LPF Urine Culture Indicated NO White Blood Count 3.3 L 4.3-11.0 10^3/uL Red Blood Count 4.53 4.30-5.52 10^6/uL Hemoglobin 14.3 13.3-17.7 g/dL Hematocrit 43 40-54 % Mean Corpuscular Volume 95 80-99 fL Mean Corpuscular Hemoglobin 32 25-34 pg Mean Corpuscular Hemoglobin Concent 33 32-36 g/dL Red Cell Distribution Width 12.9 10.0-14.5 % Platelet Count 184 130-400 10^3/uL Mean Platelet Volume 10.2 9.0-12.2 fL Immature Granulocyte % (Auto) 0 % Neutrophils (%) (Auto) 54 42-75 % Lymphocytes (%) (Auto) 32 12-44 % Monocytes (%) (Auto) 12 0-12 % Eosinophils (%) (Auto) 2 0-10 % Basophils (%) (Auto) 1 0-10 % Neutrophils # (Auto) 1.8 1.8-7.8 10^3/uL Lymphocytes # (Auto) 1.1 1.0-4.0 10^3/uL Monocytes # (Auto) 0.4 0.0-1.0 10^3/uL Eosinophils # (Auto) 0.1 0.0-0.3 10^3/uL Basophils # (Auto) 0.0 0.0-0.1 10^3/uL Immature Granulocyte # (Auto) 0.0 0.0-0.1 10^3/uL Sodium Level 142 135-145 MMOL/L Potassium Level 3.9 3.6-5.0 MMOL/L Chloride Level 106 98-107 MMOL/L Carbon Dioxide Level 26 21-32 MMOL/L Anion Gap 10 5-14 MMOL/L Blood Urea Nitrogen 16 7-18 MG/DL Creatinine 0.98 0.60-1.30 MG/DL Estimat Glomerular Filtration Rate 80 BUN/Creatinine Ratio 16 Glucose Level 89 70-105 MG/DL Calcium Level 9.1 8.5-10.1 MG/DL Corrected Calcium 9.1 8.5-10.1 MG/DL Total Bilirubin 0.5 0.1-1.0 MG/DL Aspartate Amino Transf (AST/SGOT) 22 5-34 U/L Alanine Aminotransferase (ALT/SGPT) 27 0-55 U/L Alkaline Phosphatase 60 40-136 U/L C-Reactive Protein High Sensitivity 0.04 0.00-0.50 MG/DL Total Protein 6.4 6.4-8.2 GM/DL Albumin 4.0 3.2-4.5 GM/DL Lipase 32 8-78 U/L My Orders Orders - ABA,ZAY J Ua Culture If Indicated (11/24/21 09:08) Cbc With Automated Diff (11/24/21 09:08) Comprehensive Metabolic Panel (11/24/21 09:08) Hs C Reactive Protein (11/24/21 09:08) Ed Iv/Invasive Line Start (11/24/21 09:32) Ns Iv 1000 Ml (Sodium Chloride 0.9%) (11/24/21 09:45) Ct Abdomen/Pelvis W (11/24/21 09:32) Lipase (11/24/21 09:32) Fentanyl Inj (Sublimaze Injection) (11/24/21 09:45) Iohexol Injection (Omnipaque 350 Mg/Ml 1 (11/24/21 09:45) Received Contrast (Hold Metformin- Contr (11/24/21 09:45) Sodium Chloride Flush (Catheter Flush Sy (11/24/21 09:45) Ns (Ivpb) (Sodium Chloride 0.9% Ivpb Bag (11/24/21 09:45) Us Gallbladder [id number] (11/24/21 11:04) Ed Iv/Invasive Line Start (11/24/21 11:04) Morphine Injection (Morphine Injection (11/24/21 11:40) Medications Given in ED Current Medications Medications Dose Ordered Sig/Emily Route Start Time Stop Time Status Last Admin Dose Admin Fentanyl Citrate 50 mcg ONCE ONCE IVP 11/24/21 09:45 11/24/21 09:46 DC 11/24/21 09:39 50 MCG Iohexol 100 ml ONCE ONCE IV 11/24/21 09:45 11/24/21 09:46 DC 11/24/21 10:10 77 ML Sodium Chloride 10 ml NEEDED PRN IV 11/24/21 09:45 11/24/21 10:11 10 ML Sodium Chloride 100 ml ONCE ONCE IV 11/24/21 09:45 11/24/21 09:46 DC 11/24/21 10:11 80 ML Vital Signs/I&O 11/24/21 09:05 Temp 36.8 Pulse 63 Resp 18 B/P (MAP) 154/81 (105) Pulse Ox 98 Blood Pressure Mean: 105 Progress Progress Note #1: Time: 09:39 Progress Note Differential includes cholecystitis/lithiasis, duodenitis, gastritis, p ancreatitis, less likely colitis or diverticulitis. He is having pain in his flank so a stone is possible in the ureter although he does not have a history of ureteral stones. His pain radiates down to his right lower quadrant so a retroflexed appendix could also be inflamed. If the CT is unrevealing an ultrasound may be helpful of the gallbladder. Will check some lab work, urinalysis and give him 50 mcg of fentanyl as well as a liter of fluids. Progress Note #2: Time: 14:36 Progress Note After the morphine the patient's pain is significantly improved although still there. We discussed HIDA scans EGD and outpatient work-up through general surgery would be indicated next. We will refer him onto Dr. Olvera. We will provide him with some hydrocodone and Zofran and return precautions. Patient is okay with this plan Diagnostic Imaging Diagonstic Imaging: CT Plain Films/CT/US/NM/MRI: abdomen, pelvis Comments [facility] [place], [place] NAME: KATHLEEN HEREDIA [facility] REC#: [id number] PT STATUS: REG ER : 1945 PHYSICIAN: AZY TRONCOSO MD ADMIT DATE: 11/24/21/ER Signed Date of Exam:11/24/21 US GALLBLADDER [id number] EXAMINATION: US Abdomen limited. TECHNIQUE: Multiple real-time grayscale images were obtained over the right upper quadrant in various projections. HISTORY: RUQ pain. COMPARISON: 11/24/2021. FINDINGS: Pancreas: The pancreas is nonvisualized secondary to overlying bowel gas. Liver: The liver is normal in echogenicity and contour. No focal lesions are seen. The portal vein is patent with hepatopetal flow. Gallbladder and biliary tree: Gallbladder is normal without wall thickening, pericholecystic fluid, or sonographic Mueller sign. There is no biliary ductal dilation. The common duct is obscured by overlying bowel gas. Right kidney: The right kidney is normal without hydronephrosis. Aorta and IVC: The aorta is nonvisualized secondary to overlying bowel gas. The visualized IVC is normal. Fluid: No ascites is seen. IMPRESSION: 1. Unremarkable ultrasound of the visualized right upper quadrant. Dictated by: Dictated on workstation # [id number] Dict: 11/24/21 1138 Trans: 11/24/21 1149 [id number] Interpreted by: KATHLEEN IZAGUIRRE DO Electronically signed by: KATHLEEN IZAGUIRRE DO 11/24/21 1149 Reviewed: Reviewed by Me Diagonstic Imaging: Ultrasound Plain Films/CT/US/NM/MRI: abdomen Comments [facility] [place] NAME: KATHLEEN HEREDIA [facility] REC#: [id number] PT STATUS: REG ER : 1945 PHYSICIAN: ZAY TRONCOSO MD ADMIT DATE: 11/24/21/ER Signed Date of Exam:11/24/21 US GALLBLADDER [id number] EXAMINATION: US Abdomen limited. TECHNIQUE: Multiple real-time grayscale images were obtained over the right upper quadrant in various projections. HISTORY: RUQ pain. COMPARISON: 11/24/2021. FINDINGS: Pancreas: The pancreas is nonvisualized secondary to overlying bowel gas. Liver: The liver is normal in echogenicity and contour. No focal lesions are seen. The portal vein is patent with hepatopetal flow. Gallbladder and biliary tree: Gallbladder is normal without wall thickening, pericholecystic fluid, or sonographic Mueller sign. There is no biliary ductal dilation. The common duct is obscured by overlying bowel gas. Right kidney: The right kidney is normal without hydronephrosis. Aorta and IVC: The aorta is nonvisualized secondary to overlying bowel gas. The visualized IVC is normal. Fluid: No ascites is seen. IMPRESSION: 1. Unremarkable ultrasound of the visualized right upper quadrant. Dictated by: Dictated on workstation # [id number] Dict: 11/24/21 1138 Trans: 11/24/21 1149 TOMY [id number] Interpreted by: KATHLEEN IZAGUIRRE DO Electronically signed by: KATHLEEN IZAGUIRRE DO 11/24/21 1149 Reviewed: Reviewed by Me Departure Impression Primary Impression: Right upper quadrant abdominal pain Disposition: 01 HOME, SELF-CARE Condition: Stable Departure-Patient Inst. Decision time for Depature: 14:37 Referrals: NO,LOCAL PHYSICIAN (PCP) Primary Care Physician REY PERSAUD (Family) Primary Care Physician DELMAN,ARIANNE B DO Patient Instructions: HIDA Scan (DC) Add. Discharge Instructions: Some further work-up in the general surgeons office would be indicated. He can set you up for outpatient HIDA scan, EGD or what ever is necessary after examining you. Call for an appointment with Dr. Olvera in the next 1 to 2 weeks. Continue to take an antacid such as omeprazole 20 mg twice a day or pantoprazole 20 mg twice a day. Avoid high grease, high spicy meals. Lots of fiber in your diet. Return to the ER for intractable pain or nausea. Hydrocodone 1 tablet every 6 hours as needed for severe breakthrough pain. Ondansetron 1 tablet under the tongue every 6 hours as needed for nausea or vomiting All discharge instructions reviewed with patient and/or family. Voiced understanding. Scripts Ondansetron (Ondansetron Odt) 4 Mg Tab.rapdis 4 MG PO Q6H PRN for NAUSEA/VOMITING, #8 TAB 0 Refills Prov: ZAY TRONCOSO 11/24/21 Hydrocodone/Acetaminophen (Hydrocodone-Acetamin 5-325 mg) 5 Mg-325 Mg Tablet 1 TAB PO Q4H PRN for PAIN-MODERATE (5-7), #12 TAB 0 Refills Prov: ZAY TRONCOSO 11/24/21 Copy Copies To 1: ARIANNE OLVERA DO ZAY TRONCOSO Nov 24, 2021 09:37
[2021-11-24] MEDS ORDERED: IOHEXOL 350 MG/ML 100 ML (OMNIPAQUE 350) VIAL IV ONE (09:45)
[2021-11-24] MEDS ORDERED: HOLD METFORMIN - RECEIVED CONTRAST 20 ML VIAL IV SCH (09:45)
[2021-11-24] MEDS ORDERED: CATHETER FLUSH 10 ML SYR IV PRN (09:45)
[2021-11-24] MEDS ORDERED: NS 100 ML (IVPB) BAG IV ONE (09:45)
[2021-11-24] MEDS ORDERED: NS IV 1000 ML 1,000 ML IV SCH (09:45)
[2021-11-24] MEDS ORDERED: fentaNYL INJ 100 MCG/2 ML AMP IVP ONE (09:45)
[2021-11-24 09:46] LABS: POTASSIUM 3.9 MMOL/L (3.6-5.0)
[2021-11-24 09:47] LABS: CALCIUM 9.1 MG/DL (8.5-10.1)
[2021-11-24 09:49] LABS: TOTAL PROTEIN 6.4 GM/DL (6.4-8.2)
[2021-11-24 09:50] LABS: BILIRUBIN,TOTAL 0.5 MG/DL (0.1-1.0)
[2021-11-24 09:52] LABS: CREATININE SERUM 0.98 MG/DL (0.60-1.30)
--- NOTE | 2021-11-24 10:22 | Diagnostic Imaging Report ---
EXAMINATION: CT abdomen and pelvis with intravenous contrast. TECHNIQUE: Multiple contiguous axial images were obtained through the abdomen and pelvis after the uneventful administration of intravenous contrast. All CT scans use one or more of the following dose optimizing techniques: automated exposure control, MA and/or KvP adjustment based on patient size and exam type or iterative reconstruction. HISTORY: RUQ pain COMPARISON: 10/02/2020 FINDINGS: Lung bases: Bibasilar dependent atelectasis. Solid organs: The liver is normal without focal lesion. The gallbladder is normal. There is no biliary ductal dilation. Pancreas is normal. Spleen is normal. Adrenal glands are normal. The kidneys are normal without hydronephrosis. Bowel: The stomach and small bowel are normal without obstruction. There is a moderate amount of stool seen throughout the colon. No findings of acute appendicitis. Peritoneum: There is no intraperitoneal free fluid or free air. No suspicious lymphadenopathy. Vasculature: Calcification of the aorta without aneurysm. Musculoskeletal: Degenerative changes of the spine without suspicious osseous lesion or compression fracture. Pelvis: The prostate gland is enlarged. The urinary bladder is normal. IMPRESSION: 1. No acute abnormality in the abdomen or pelvis. 2. Moderate stool burden which can be seen with constipation. Dictated by: Dictated on workstation # [id number]
[2021-11-24] MEDS ORDERED: morphine INJ 10 MG/ML 1ML (SYR OR VIAL) IVP STA (11:40)
--- NOTE | 2021-11-24 11:42 | Diagnostic Imaging Report ---
EXAMINATION: US Abdomen limited. TECHNIQUE: Multiple real-time grayscale images were obtained over the right upper quadrant in various projections. HISTORY: RUQ pain. COMPARISON: 11/24/2021. FINDINGS: Pancreas: The pancreas is nonvisualized secondary to overlying bowel gas. Liver: The liver is normal in echogenicity and contour. No focal lesions are seen. The portal vein is patent with hepatopetal flow. Gallbladder and biliary tree: Gallbladder is normal without wall thickening, pericholecystic fluid, or sonographic Mueller sign. There is no biliary ductal dilation. The common duct is obscured by overlying bowel gas. Right kidney: The right kidney is normal without hydronephrosis. Aorta and IVC: The aorta is nonvisualized secondary to overlying bowel gas. The visualized IVC is normal. Fluid: No ascites is seen. IMPRESSION: 1. Unremarkable ultrasound of the visualized right upper quadrant. Dictated by: Dictated on workstation # [id number]
[2021-11-24] MEDS ORDERED: ONDA4TAB11 PO (14:39)
[2021-11-24] MEDS ORDERED: ACHD5005 PO (14:39)
[2021-11-24 14:49] VITALS: BP 135/72
== END 2021-11-24 14:49 | disposition home or self-care (01) ==
LOC: EDUNIT# 09:03 → ER 09:05
DX: R10.11 Right upper quadrant pain (principal)
CPT/HCPCS: 36415; 74177; 76705; 80053; 81000; 83690; 85025; 86141

== ENCOUNTER → 2021-12-21 | Outpatient (CLI) | payer OTHER ==
[~2021-12-21] MED LIST changes: +ACHD5005 PO; +CATHETER FLUSH 10 ML SYR IVP PRN; +ONDA4TAB11 PO
--- NOTE | 2021-12-21 15:07 | Diagnostic Imaging Report ---
INDICATION: RIGHT SIDE ABDOMINAL PAIN. FINDINGS: The patient was administered 4.73 mCi of Tc 99m Choletec and sequential imaging was performed over the right upper abdomen. There is progressive, homogeneous accumulation of radiotracer within the liver parenchyma. There is filling of the bile ducts and subsequent filling of the gallbladder. There is progressive clearance of activity from the liver parenchyma and accumulation of radiotracer within loops of small bowel. The patient was then administered a fatty meal, utilizing 8 ounces of Ensure. The gallbladder ejection fraction was calculated to be approximately 76.1%. (Normal values post fatty meal stimulation are 33% or greater.) IMPRESSION: 1. Hepatobiliary scan demonstrates a patent biliary tree. 2. Normal gallbladder ejection fraction of approximately 76.1%. Dictated by: Dictated on workstation # [id number]
== END ==
LOC: CARD 12:45
PROVIDERS: ATTEND Nurse Practitioner
DX: R10.9 Unspecified abdominal pain (principal)
CPT/HCPCS: 78227

== ENCOUNTER → 2022-03-23 | Outpatient (CLI) | payer OTHER ==
[~2022-03-23] MED LIST changes: -CATHETER FLUSH 10 ML SYR IVP PRN
== END ==
LOC: LABNPT 12:07
DX: G60.3 Idiopathic progressive neuropathy (principal); G25.0 Essential tremor; Z87.828 Personal history of other (healed) physical injury and trauma
CPT/HCPCS: 83921

== ENCOUNTER → 2022-04-02 | Outpatient (CLI) | payer OTHER ==
--- NOTE | 2022-04-02 13:41 | Diagnostic Imaging Report ---
INDICATION: Monoclonal gammopathy. COMPARISON: None available. TECHNIQUE: 24 radiographs of the osseous structures of the entire body are obtained dated April 02, 2022. FINDINGS: Anterior plate and screw fixation of C3 and C4. No depressed calvarial fracture. Mild anterior wedging is noted within the upper thoracic spine. No vertebra plana. Mild scattered osseous degenerative changes are noted throughout the osseous structures. No acute fracture. No destructive osseous process. IMPRESSION: Mild anterior wedging within the upper thoracic spine, of uncertain chronicity, though favored to be chronic in nature. Recommend correlation for pain. Mild scattered osseous degenerative changes. No focal destructive osseous lesion. Dictated by: Dictated on workstation # [id number]
== END ==
LOC: RAD 11:08
PROVIDERS: ATTEND Internal Medicine Hematology & Oncology
DX: M48.54XA Collapsed vertebra, not elsewhere classified, thoracic region, initial encounter for fracture (principal); D47.2 Monoclonal gammopathy
CPT/HCPCS: 77075

== ENCOUNTER → 2022-04-07 | Outpatient (RCR) | payer OTHER ==
[2022-03-23 12:04] LABS: BASOPHILS % (AUTO) 1 % (0-10); EOSINOPHILS # (AUTO) 0.1 10^3/uL (0.0-0.3); EOSINOPHILS % (AUTO) 2 % (0-10); HEMATOCRIT 44 % (40-54); HEMOGLOBIN 14.5 g/dL (13.3-17.7); LYMPHOCYTES # (AUTO) 1.4 10^3/uL (1.0-4.0); LYMPHOCYTES % (AUTO) 41 % (12-44); MEAN CORPUSCULAR HEMOGLOBIN 31 pg (25-34); MEAN CORPUSCULAR HGB CONC 33 g/dL (32-36); MEAN CORPUSCULAR VOLUME 95 fL (80-99); MEAN PLATELET VOLUME 10.8 fL (9.0-12.2); MONOCYTES # (AUTO) 0.4 10^3/uL (0.0-1.0); MONOCYTES % (AUTO) 13 % (0-12); NEUTROPHILS # (AUTO) 1.4 10^3/uL (1.8-7.8); NEUTROPHILS % (AUTO) 43 % (42-75); PLATELET COUNT 161 10^3/uL (130-400); WHITE BLOOD COUNT 3.3 10^3/uL (4.3-11.0)
[2022-03-23 12:44] LABS: ALBUMIN 4.2 GM/DL (3.2-4.5); BILIRUBIN,TOTAL 0.5 MG/DL (0.1-1.0); CALCIUM 10.1 MG/DL (8.5-10.1); CREATININE SERUM 1.07 MG/DL (0.60-1.30); POTASSIUM 4.5 MMOL/L (3.6-5.0)
== END | disposition home or self-care (01) ==
LOC: ONC 03-23 10:21
PROVIDERS: ATTEND Internal Medicine Hematology & Oncology
DX: D47.2 Monoclonal gammopathy (principal)
CPT/HCPCS: 80053; 83883; 85025; 99204; 99213

== ENCOUNTER → 2022-04-21 | Outpatient (CLI) | payer OTHER ==
--- NOTE | 2022-04-21 10:14 | Diagnostic Imaging Report ---
PROCEDURE: MR imaging of the brain without contrast. TECHNIQUE: Multiplanar, multisequence MR imaging of the brain was performed without contrast. INDICATION: Tremor. Headaches and weakness. COMPARISON: none FINDINGS: No acute ischemia, mass, or hemorrhage. T2 hyperintense signal is seen in the periventricular and subcortical white matter. The ventricles, cortical sulci, and basilar cisterns are symmetric and unremarkable. The sellar and suprasellar regions have a normal appearance. The brainstem and posterior fossa are unremarkable. The paranasal sinuses and mastoid air cells demonstrate normal signal characteristics. The globes and orbits are symmetric and unremarkable. The scalp and calvarium have a normal appearance. IMPRESSION: 1. No acute ischemia, mass, or hemorrhage. 2. T2 hyperintense signal in the periventricular and subcortical white matter. Findings may represent chronic microvascular disease, demyelination, or inflammatory/infectious process such as Lyme disease. Recommend correlation with patient symptoms and history and if indicated lumbar puncture for CSF analysis. Dictated by: Dictated on workstation # [id number]
== END ==
LOC: RAD 08:36
PROVIDERS: ATTEND Psychiatry & Neurology Neurology
DX: R25.1 Tremor, unspecified (principal); R51.9 Headache, unspecified; R53.1 Weakness; Z87.828 Personal history of other (healed) physical injury and trauma
CPT/HCPCS: 70551

== ENCOUNTER 2022-07-06 10:42 | Outpatient (RCR) | payer OTHER ==
[2022-06-29 10:58] LABS: BASOPHILS % (AUTO) 1 % (0-10); EOSINOPHILS # (AUTO) 0.1 10^3/uL (0.0-0.3); EOSINOPHILS % (AUTO) 2 % (0-10); HEMATOCRIT 44 % (40-54); HEMOGLOBIN 14.4 g/dL (13.3-17.7); LYMPHOCYTES # (AUTO) 1.1 10^3/uL (1.0-4.0); LYMPHOCYTES % (AUTO) 39 % (12-44); MEAN CORPUSCULAR HEMOGLOBIN 31 pg (25-34); MEAN CORPUSCULAR HGB CONC 33 g/dL (32-36); MEAN CORPUSCULAR VOLUME 95 fL (80-99); MONOCYTES # (AUTO) 0.4 10^3/uL (0.0-1.0); MONOCYTES % (AUTO) 14 % (0-12); NEUTROPHILS # (AUTO) 1.3 10^3/uL (1.8-7.8); NEUTROPHILS % (AUTO) 45 % (42-75); PLATELET COUNT 145 10^3/uL (130-400); WHITE BLOOD COUNT 2.8 10^3/uL (4.3-11.0)
[2022-06-29 11:21] LABS: ALBUMIN 3.9 GM/DL (3.2-4.5); BILIRUBIN,TOTAL 0.4 MG/DL (0.1-1.0); CALCIUM 9.4 MG/DL (8.5-10.1); CREATININE SERUM 1.15 MG/DL (0.60-1.30); POTASSIUM 4.3 MMOL/L (3.6-5.0); TOTAL PROTEIN 6.7 GM/DL (6.4-8.2)
== END 2022-07-07 | disposition home or self-care (01) ==
LOC: ONC 10:42
PROVIDERS: ATTEND Internal Medicine Hematology & Oncology
DX: D47.2 Monoclonal gammopathy (principal)
CPT/HCPCS: 36415; 80053; 83883; 84155; 84165; 85025; 99213

== ENCOUNTER 2022-08-04 14:01 | Outpatient (RCR) | payer OTHER | END 2022-08-07 | disposition home or self-care (01) | PROVIDERS: ATTEND Nurse Practitioner | DX: R25.1 Tremor, unspecified (principal) ==

== ENCOUNTER 2022-09-01 13:37 | Outpatient (RCR) | payer OTHER | END 2022-09-02 17:00 | disposition home or self-care (01) | PROVIDERS: ATTEND Nurse Practitioner | DX: R25.1 Tremor, unspecified (principal) ==

== ENCOUNTER 2022-10-27 08:24 | Emergency (ER) | payer OTHER ==
[~2022-10-27] VITALS: Ht 172 cm; Wt 76.0 kg
--- NOTE | 2022-10-27 08:48 | ED Lower Extremity ---
General Chief Complaint: General Problems/Pain Stated Complaint: LT KNEE PAIN Nursing Triage Note: Patient ambulatory to room 3 w c/o left knee pain. Going on for years. uses ice at home and extra strength tylenol and trazadone every night before bed. History of Present Illness Date Seen by Provider: Oct 27, 2022 Time Seen by Provider: 08:35 Initial Comments 77-year-old male presents with left knee pain. He reports that the knee pain been going on for years. However the last couple weeks it seems like it is little worse. Patient presented to the ER because he would like an x-ray. He has not followed up with his primary care providers for this. Has no acute injury. Allergies and Home Medications Allergies Coded Allergies: No Known Drug Allergies (Unverified , 12/27/16) Patient Home Medication List Home Medication List Reviewed: Yes Aspirin (Aspirin) 81 Mg Tab.chew, 81 MG PO Q48H, (Reported) Entered as Reported by: SALMA MOBLEY on 08/26/20 1205 Etodolac (Etodolac) 400 Mg Tablet, 400 MG PO BID, (Reported) Entered as Reported by: SALMA MOBLEY on 08/26/20 1205 Hydrocodone/Acetaminophen (Hydrocodone-Acetamin 5-325 mg) 5 Mg-325 Mg Tablet, 1 TAB PO Q4H PRN for PAIN-MODERATE (5-7) Prescribed by: ZAY TRONCOSO on 11/24/21 1439 Loratadine (Loratadine) 10 Mg Tablet, 10 MG PO HS, (Reported) Entered as Reported by: SALMA MOBLEY on 08/26/20 1205 Meloxicam (Meloxicam) 15 Mg Tablet, 15 MG PO DAILY PRN for MUSCLE SPASMS, (Reported) Entered as Reported by: VICKY ROSE on 12/27/16 1106 Methocarbamol (Methocarbamol) 750 Mg Tablet, 750 MG PO TID, (Reported) Entered as Reported by: VICKY ROSE on 12/27/16 1106 Ondansetron (Ondansetron Odt) 4 Mg Tab.rapdis, 4 MG PO Q6H PRN for NAUSEA/VOMITING Prescribed by: ZAY TRONCOSO on 11/24/21 1439 Oxybutynin Chloride (Oxybutynin Chloride) 5 Mg Tablet, 5 MG PO DAILY, (Reported) Entered as Reported by: MARÍA GUEVARA on 12/28/16 0820 Polyethylene Glycol 3350 (Miralax) 17 Gm Powd.pack, 17 GM PO DAILY, (Reported) Entered as Reported by: VICKY ROSE on 12/27/16 1106 Pregabalin (Pregabalin) 100 Mg Capsule, 100 MG PO TID, (Reported) Entered as Reported by: SALMA MOBLEY on 08/26/20 1205 Ropinirole HCl (Ropinirole HCl) 0.25 Mg Tablet, 0.25 MG PO HS, (Reported) Entered as Reported by: SALMA MOBLEY on 08/26/20 1205 Trazodone HCl (Trazodone HCl) 150 Mg Tablet, 150 MG PO HS, (Reported) Entered as Reported by: SALMA MOBLEY on 08/26/20 1205 Review of Systems Constitutional: no symptoms reported EENTM: no symptoms reported Respiratory: no symptoms reported Cardiovascular: no symptoms reported Gastrointestinal: no symptoms reported Musculoskeletal: see HPI Skin: no symptoms reported Psychiatric/Neurological: No Symptoms Reported Past Ockwsao-Xjjdln-Ckwddc Hx Immunizations Up To Date First/Initial COVID19 Vaccinat: 2020 Second COVID19 Vaccination Ernesto: 2020 Third COVID19 Vaccination Date: 2021 Seasonal Allergies Seasonal Allergies: No Past Medical History Surgeries: Yes (spinal fusion, toe sx, ) Abdominal, Orthopedic, Tonsillectomy Respiratory: No Cardiac: No Neurological: Yes (tremors) Neuropathy Reproductive Disorders: No Sexually Transmitted Disease: No HIV/AIDS: No Genitourinary: No Gastrointestinal: Yes (blood in stools) Chronic Constipation, Chronic Diarrhea Musculoskeletal: Yes Arthritis Endocrine: No HEENT: No Loss of Vision: Bilateral Hearing Impairment: Denies Cancer: No Psychosocial: Yes Anxiety, Depression Integumentary: No Blood Disorders: No Adverse Reaction/Blood Tranf: No (N/A) Physical Exam Vital Signs Vital Signs - First Documented 10/27/22 08:35 Temp 35.7 Pulse 67 Resp 18 B/P (MAP) 124/76 (92) Pulse Ox 98 Capillary Refill : Less Than 3 Seconds Height, Weight, BMI Height: 5'8.50" Weight: 168lbs. 0.0oz. [id number]; 25.00 BMI Method: General Appearance: WD/WN, no apparent distress Neck: full range of motion, supple Cardiovascular: normal peripheral pulses, regular rate, rhythm Respiratory: lungs clear, normal breath sounds Gastrointestinal: non tender, soft Knees: left knee pain; right knee other (No swelling, erythema or acute changes noted) Neurologic/Psychiatric: alert, normal mood/affect Skin: normal color, warm/dry Progress/Results/Core Measures Results/Orders My Orders Orders - MUNA MOODY DO Knee, Left, 3 Views (10/27/22 08:48) Vital Signs/I&O 10/27/22 08:35 Temp 35.7 Pulse 67 Resp 18 B/P (MAP) 124/76 (92) Pulse Ox 98 Blood Pressure Mean: 92 Progress Progress Note : Progress Note Patient's x-ray was ordered and reviewed by me with initial interpretation by me with final interpretation per radiology report. Patient has no acute findings on physical exam or x-ray. Patient's symptoms likely due to just age and chronic degenerative changes. Discussed with him topical Voltaren along with topical lidocaine. He should follow-up with his primary care provider for further outpatient management. Diagnostic Imaging Diagonstic Imaging: Xray Plain Films/CT/US/NM/MRI: knee Comments Date of Exam:10/27/22 KNEE, LEFT, 3 VIEWS INDICATION: Left knee pain 3 views of the left knee show no fracture, dislocation or other acute abnormalities. Joint spaces are well-maintained. IMPRESSION: Unremarkable left knee. Reviewed: Reviewed by Me, Reviewed/Discussed Departure Impression Primary Impression: Left knee pain Qualified Codes: M25.562 - Pain in left knee; G89.29 - Other chronic pain Disposition: 01 HOME, SELF-CARE Condition: Stable Departure-Patient Inst. Referrals: REY PERSAUD (PCP) Primary Care Physician Patient Instructions: Chronic Knee Pain (DC), Knee Pain ED Add. Discharge Instructions: Diclofenac/Voltaren cream or gel use as directed on package. 4% topical lidocaine with menthol cream or gel. Use as directed on package these are both available [id number] at local pharmacies. All discharge instructions reviewed with patient and/or family. Voiced understanding. MUNA MOODY DO Oct 27, 2022 08:48
--- NOTE | 2022-10-27 09:29 | Diagnostic Imaging Report ---
INDICATION: Left knee pain 3 views of the left knee show no fracture, dislocation or other acute abnormalities. Joint spaces are well-maintained. IMPRESSION: Unremarkable left knee. Dictated by: Dictated on workstation # [id number]
[2022-10-27 10:15] VITALS: BP 111/95
== END 2022-10-27 10:15 | disposition home or self-care (01) ==
LOC: EDUNIT# 08:24 → ER 08:26
DX: M25.562 Pain in left knee (principal)
CPT/HCPCS: 73562

== ENCOUNTER → 2023-01-05 | Outpatient (RCR) | payer OTHER ==
[2022-12-28 13:39] LABS: BASOPHILS % (AUTO) 1 % (0-10); EOSINOPHILS # (AUTO) 0.1 10^3/uL (0.0-0.3); EOSINOPHILS % (AUTO) 2 % (0-10); HEMATOCRIT 40 % (40-54); HEMOGLOBIN 13.4 g/dL (13.3-17.7); LYMPHOCYTES # (AUTO) 0.9 10^3/uL (1.0-4.0); LYMPHOCYTES % (AUTO) 16 % (12-44); MEAN CORPUSCULAR HEMOGLOBIN 32 pg (25-34); MEAN CORPUSCULAR HGB CONC 34 g/dL (32-36); MEAN CORPUSCULAR VOLUME 93 fL (80-99); MEAN PLATELET VOLUME 10.7 fL (9.0-12.2); MONOCYTES # (AUTO) 0.4 10^3/uL (0.0-1.0); MONOCYTES % (AUTO) 6 % (0-12); NEUTROPHILS # (AUTO) 4.2 10^3/uL (1.8-7.8); NEUTROPHILS % (AUTO) 75 % (42-75); PLATELET COUNT 189 10^3/uL (130-400); WHITE BLOOD COUNT 5.6 10^3/uL (4.3-11.0)
[2022-12-28 14:09] LABS: ALBUMIN 3.7 GM/DL (3.2-4.5); BILIRUBIN,TOTAL 0.4 MG/DL (0.1-1.0); CALCIUM 9.2 MG/DL (8.5-10.1); CREATININE SERUM 1.36 MG/DL (0.60-1.30); POTASSIUM 4.2 MMOL/L (3.6-5.0); TOTAL PROTEIN 6.6 GM/DL (6.4-8.2)
[2022-12-30 15:28] LABS: IMMUNOFIX PATH REPORT NUMBER Complete (Complete)
== END | disposition home or self-care (01) ==
LOC: ONC 12-28 13:20
PROVIDERS: ATTEND Internal Medicine Hematology & Oncology
DX: D47.2 Monoclonal gammopathy (principal)
CPT/HCPCS: 80053; 83883; 84155; 84165; 85025; 86334